=== PATIENT | female | born 1980 | race Caucasian/White ===

== ENCOUNTER 2021-09-09 10:37 | Day surgery (SDC) | payer SELFPAY, OTHER ==
[2021-09-09] VITALS (7 sets, daily range): BP systolic 101–115; BP diastolic 64–82; PULSE 56–66; RESP 16–18; TEMP 36.4–36.6; O2SAT 10–100; BMI 27.9
--- NOTE | 2021-09-09 08:43 | HP.PCM_ITS ---
History and Physical ntake Vital Signs ? 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 Christin Prabhakar MD) Anxiety Gastric reflux High cholesterol History of edema History of phlebitis Non-smoker Wears glasses Family History?(Updated 09/05/21 @ 14:59 by April Ramos) Grandfather Heart disease Social History?(Updated 09/05/21 @ 15:00 by April Ramos) Smoking Status:? Never smoker alcohol intake:? never substance use type:? does not use what type of physical activity do you participate in:? none seatbelt use:? always do you feel safe at home:? Yes additional social history:? [employer] also has [employer] business ? Pregancy History ? ? ? 5 ? Elective abortions ? Hx Para ? ? ? 4 ? Spontaneous abortions ? Hx # Term Pregnancies ? ? ? 4 ? Ectopic pregnancies ? Hx # Pregnancies ? Multiple births ? # of living children ? ? ? 4 Past Pregnancies Del. Date Name GA/Weeks Outcome Route Bth Weight Gen Labor Lgth Anesthesia Del Locatn Provider FOB Unknown 2003 Meghann 39 live - full term ? Female 4 none Range ? Ad Unknown 2006 Lamonte ? live - full term 42 Male ? n one [facility] Dr. Juan Duong Unknown 2009 Trini 42 live - full term NS VD ? Female ? none [facility] Dr. Juan Duong Unknown 2015 Christin 42 live - full term NS VD ? Female ? ? [facility] ? Ad Delivery Date:?? Last Updated by: April Ramos ? ? ? vericose veins ? ? ? Delivery Date:?? Last Updated by: April aRmos ? ? ? Dwarfism Delivery Date:?? Last Updated by: April Ramos ? ? ? Dwarfism HPI pro shop attendant pt, cervical polyp, ok per SM Details: TERRY ALVARENGA is a 41 year old who presents for consultation of vaginal bleeding and cervical mass.? she has been receiving care by [facility] and had a cervical mass seen and was referred here.? she was having intermittent bleeding sometimes small clots occasional cramping, and pelvic ultrasound showed a vasecular lesion coming off the cervix with viable IUP seen. she denies any fevers.? OB Visit CELESTINO Calculator ? Estimated Delivery DateB Method Current WG ? Current Estimate 03/11/22 Manual 13w 3d based on LMP Initial Weight:?Not Recorded Date -?-?-?-?-?-?-?-?-?-?-?-?- EGA Weight BP Urine Prot -?-?-?-?-?-?-?-?-?-?-?-?- Glucose FHR FuHt Pres Dilation -?-?-?-?-?-?-?-?-?-?-?-?- Effaced St Visit Note 09/05/21-?-?-?-?-?-?-?-?-?-?-?-?- 13w 2d 180 lb ? -?-?-?-?-?-?-?-?-?-?-?-?- ? 150 ? ? -?-?-?-?-?-?-?-?-?-?-?-?- ? ? - seen for vaginal bleeding and cervical mass Diagnostics Diagnostics Diagnostics: ?? ? No Data to Display Details: HIV: Urine Culture: Sequential Screen: NIPT Screen: ROS Const Reports system reviewed and no additional complaints, except as documented, Reports fatigue and Denies fever(s) Eyes Reports system reviewed and no additional complaints, except as documented ENT Reports system reviewed and no additional complaints, except as documented Card Denies chest pain and Denies dyspnea Resp Reports system reviewed and no additional complaints, except as documented, Denies cough and Denies dyspnea GI Denies abdominal pain and Reports nausea Reports system reviewed and no additional complaints, except as documented Musc Reports system reviewed and no additional complaints, except as documented Skin/Breast Reports system reviewed and no additional complaints, except as documented Neuro Yes system reviewed and no additional complaints, except as documented Psych Reports system reviewed and no additional complaints, except as documented Endo Reports system reviewed and no additional complaints, except as documented and Reports fatigue Exam Const General: healthy appearing, comfortable and no acute distress Orientation: alert [facility] Head: normal to inspection, normocephalic and atraumatic Ears: hearing grossly normal bilaterally and external ears normal Nose: external nose normal and nares normal Mouth: oral mucosae normal Teeth and gingiva: dentition normal Eyes General: appearance normal, both eyes and all related structures Neck Neck: normal visual inspection, no lymphadenopathy and supple Thyroid: thyroid normal Resp Effort & Inspection: normal respiratory effort GI Inspection: normal to inspection Palpation: soft and no hepatosplenomegaly General: bladder normal to palpation External Female Exam: normal external appearance and normal appearance of the urethra Urethra: normal appearance of the urethra Speculum Exam - Vagina: normal appearance of the vagina and normal vaginal discharge Speculum Exam - Cervix: abnormal appearance of the cervix and mass (fibroid in flamed 4-5cm with stalk ending at cervical base) Bimanual Exam- Vagina & Uterus: normal bimanual exam, bladder normal to palpation, non-tender and other Bimanual Exam- Adnexa, other: non-tender Skin General: no rashes or lesions noted Neuro Motor: muscle tone normal throughout and no movement abnormalities noted Extrem General: normal to inspection and full ROM Supplemental Info ACOG book given and patient encouraged to read about nutrition, exercise, weight gain, and food avoidance in . Coding Level of Care Code OB Routine Diagnoses ? Z34.90 Cervical polyp? N84.1 Uterine fibroid during , antepartum? O34.10; D25.9 Assessment and Plan Assessment and Plan (1) : ?Status:?Acute ?Comment: seeing pro shop attendant at [facility], we are seeing her through care of the fibroid then she will transfer back care (2) Cervical polyp: ?Status:?Acute (3) Uterine fibroid during , antepartum: ?Status:?Acute ?Comment: vaginal 4-5cm bleeding, recommend removal plan vaginal surgical removal at 14 weeks Plan discussed options including exp management versus removal, decision to proceed with removal thursday. After discussing the patient's diagnosis and treatment plan options, patient wi shes to proceed with surgical management.? I have discussed with the patient the risks, benefits, and alternatives of the procedure which include but are not limited to risks of anesthesia, bleeding, infection, possible miscarriage.? Patient agrees to procedure and wishes to proceed.? ACOG/uptodate references given for additional information regarding procedure.?
[2021-09-09] MEDS: Lactated Ringers 1,000 ML 15 ML IV (11:11)
[2021-09-09 11:44] LABS: Absolute Lymphocyte Count 1.52 X10^3/uL (0.83-4.51); Absolute Neutrophil Count 5.9 X10^3/uL (2.0-7.7); Basophil# 0.04 X10^3/uL; Basophil% 0.5 % (0-1); Eosinophil# 0.08 X10^3/uL; Hematocrit 39.8 % (37-47); Hemoglobin 12.1 g/dL (12.0-15.0); Lymphocyte # 1.52 X10^3/ul (0.83-4.51); Lymphocyte % 18.8 % (19-41); Mean Corp Hgb Conc 30.4 g/dL (32-36); Mean Corpuscular Volume 75.8 fL (81-99); Mean Platelet Vol. 8.2 fl (6.2-12.0); Monocyte# 0.51 X10^3/uL; Monocyte% 6.3 % (0-10); NRBC Flagged by Analyzer 0 % (0-5); Neutrophil # 5.88 X10^3/uL (2.7-7.7); Neutrophil % 72.8 % (47-70); Platelet Count 208 K/mm3 (150-450); RBC Distribution Width CV 18.2 % (11.6-14.6); RBC Distribution Width SD 48.1 fl (35.1-43.9); Red Blood Count 5.25 M/mm3 (4.2-5.4); White Blood Count 8.1 K/mm3 (4.4-11.0)
--- NOTE | 2021-09-09 12:00 | CER_PTH ---
PATIENT: TERRY ALVARENGA [place] [facility] [place][id number] AGE/SX: 41/F ROOM: RE09/09/[address]: Dr. Christin Prabhakar MD : 1980 BED: DIS: 09/09/2021 SPEC #: [id number] RECD: 09/09/21 13:45 STATUS: SHERWIN WALKER #: [id number] NGOZI: 09/09/21 12:[address]: Christin Prabhakar DEPT: SURGICAL PATHOLOGY RECD BY: Jessika Bailey ENTERED: 09/09/21 14:03 SP TYPE: CERV OTHR DR: Dr. Yovany Martinez MD Tissues: Fibrous tissue Procedures: Surgery Specimen Level IV HEADER OPERATION: Myomectomy, cervical PRE-OP DIAGNOSIS: Uterine fibroid during , antepartum TISSUE SUBMITTED: Cervical fibroid MICROSCOPIC DIAGNOSIS Cervical fibroid, biopsy: Consistent with benign endometrial polyp with gestational endometrium. See comment. DIAMOND:jae 09/11/2021 COMMENT The specimen also shows extensive Sandoval-Cande reaction and decidualization. Clinical correlation and appropriate follow-up are necessary. MICROSCOPIC DESCRIPTION Slides are reviewed. GROSS DESCRIPTION Received in fixative is one container labeled with the patient's name and designated cervical fibroid. The specimen consists of a polypoid piece of almaraz soft tissue measuring 4.5 x 3.5 x 2 cm and weighing 16.8 gm. The base of the polyp is inked black. Sections of the polyp reveal almaraz cut surfaces with focal cystic area. Car Worker Helper sections are submitted in four cassettes. Cassette 1 contains the base of the polyp. / DIAMOND:jae 09/09/2021 The specimen is submitted in six more cassettes, 5-10. / DIAMOND:jae 09/10/2021 TC:5 CPT: 24138
[2021-09-09] MEDS: Cefotetan 2 GM in 0.9% NS 100 ML IV (12:17)
--- NOTE | 2021-09-09 12:29 | OP.PCM_ITS ---
Problems Associated Problem List Diagnoses (1) : (2) Uterine fibroid during , antepartum: Report of Operation Date of Procedure: 09/09/21 Pre-Operative Diagnosis: Vaginal bleeding from cervical fibroid Post-Operative Diagnosis: same Surgery/Procedure Performed:: Cervical myomectomy Description of Surgical Findings:: Removal of cervical fibroid 4 to 5 cm stalk attached to base of cervix Surgeon: Christin Prabhakar director of community education: Jemima Gray Type of Anesthesia: MAC Special Medications: floseal surgicel Specimen's removed: cervical fibroid Drains: none Estimated Blood Loss (mL): 100 Fluids Replaced: crystalloid Description of Procedure: patient placed in dorsal lithotomy position. She was placed under MAC anest hesia which was found to be adequate and bladder drained of clear urine. SCDs were on preoperatively. Bedside ultrasound was used to confirm heart tones present and reassuring in the 140s with no gross abnormality seen within the uterus. Attention was then paid to the vaginal portion and the fibroid was grasped with an Allis clamp and the base of the fibroid stalk identified and noted to attach two thirds of the way up the endocervical canal with the cervix noted to be significantly dilated due to the fibroid being present. The cervix was very friable and bled easily. The base of the fibroid was clamped with a right angle clamp and the Bovie used to cut off the fibroid at its base. Using an 0 Vicryl suture the pedicle was suture-ligated and then to obtain hemostasis and additional [id number] suture was thrown over the area also providing some compression from the posterior lip of the cervix to the anterior lip where the fibroid stalk had been noted. A raw appearance was seen and therefore Floseal was injected into the endocervical canal where the fibroid pedicle had been ligated and fair hemostasis was noted. Surgicel placed over the area and the area was oversewn with a couple of additional [id number] 0 Vicryl sutures. This obtained excellent hemostasis and ultrasound was performed to confirm no buildup of blood in the endocervical canal seen or in the lower uterine segment. Uterus was posterior fundal and noted to be within normal limits. movement was seen while being confirmed with heart tones in the 140s at the end the procedure. Monsel's paste placed over the outside of the cervix and all instruments removed from the vagina. Patient was taken recovery in stable condition. After patient had been in recovery for 45 minutes an additional ultrasound at the bedside was performed and confirmed to see heart tones in the 140s and no gross abnormalities around the gestational sac or placenta. Patient had no vaginal bleeding to report at the time. Procedures Urinary/Genital 5XXXX Add on/ Proc: Other Procedure See Report (attention eder, myomectomy was not laparoscopic or open, it was vaginal, removal of cervical mass(fibroid 5 cm) unclear what CPT code to use.)
[2021-09-09] MEDS: FERRIC SUBSULFATE 8 GM SOLN (13:05)
--- NOTE | 2021-09-09 14:22 | DCINST_ITS ---
Discharge Instructions Procedure Other (cervical myomectomy) Diet Discharge Diet: No restrictions Activity Discharge Activity: Return to Normal Activity, May Shower and May Take a Tub Bath (after 1 week) May resume sexual activity in: 4 weeks Weight Bearing Status: Weight bearing as tolerated Lifting Restrictions: under fifteen pounds x 2 weeks Dressing / Incision Call your doctor if you observe: Fever of 101 or Higher, Using more than 1 pad per hour, Shortness of breath and Uncontrolled pain Follow Up Care Please Follow Up With: Christin Prabhakar MD When: Call [phone] to schedule appointment. call to be seen thursday with SM Test Results: Test results from this visit will be discussed in further detail at your follow- up appointment, if applicable. Discharge Plan Admission Attending Provider: Christin Prabhakar Primary Care Provider: Yovany Martinez Discharge Orders/Prescriptions Prescriptions: No Action multivitamin Tablet 1 tab PO DAILY fiber Tablet 1 tab PO DAILY Probiotic 3 billion cell Capsule 3,000 mmu cells PO DAILY Rx Instructions: administer with a meal Referrals / Follow Up: Yovany Martinez MD [Primary Care Provider] - Disposition Disposition (needs filled in before D/C Order can be placed): Home, Self Care
[2021-09-09] MEDS: Acetaminophen 500 MG Tablet 1000 MG PO (14:44)
== END 2021-09-09 14:49 | disposition home or self-care (01) ==
LOC: SDC 10:42 → AC 10:44
PROVIDERS: PCP Family Medicine; Visit Provider Obstetrics & Gynecology
PROC: 0UB98ZZ Excision of Uterus, Via Natural or Artificial Opening Endoscopic (ICD-10-PCS; CPT 58145; principal; 2021-09-09 11:40)
DX: O34.11 Maternal care for benign tumor of corpus uteri, first trimester (principal); D25.9 Leiomyoma of uterus, unspecified; Z3A.13 13 weeks gestation of pregnancy; O09.521 Supervision of elderly multigravida, first trimester
CPT/HCPCS: 58145; 00940; 85025; 86850; 86900; 86901; 88305; J7120; J2405

== ENCOUNTER → 2021-11-01 | Outpatient (CLI) | payer SELFPAY, OTHER ==
--- NOTE | 2021-11-01 08:08 | US_ITS ---
STUDY: SECOND AND THIRD TRIMESTER OBSTETRICAL ULTRASOUND REASON FOR EXAM: Female, 41 years old anatomy LMP: 06/04/2021. TECHNIQUE: Transabdominal and Transvaginal TECHNICAL QUALITY: Adequate. PRIOR ULTRASOUND: None. FINDINGS: There is a single intrauterine fetus. The fetus is in a variable presentation. There is demonstrated cardiac activity with a heart rate of 129 bpm. There is a normal amniotic fluid volume. The largest amniotic fluid pocket measures 5.8 cm x 3.3 cm. The amniotic fluid index (ELIOT) is within normal limits The placenta is posterior in location and is not low lying. There are Grade 0 placental changes. The cervix measures 3.3 cm in length. The bilateral adnexal regions are normal. BIOMETRY: BPD: 4.95 cm: 21 weeks, 0 days HC: 19.18 cm: 21 weeks, 3 days AC: 17.35 cm: 22 weeks, 2 days FL: 3.65 cm: 21 weeks, 4 days CI: 74% FL/BPD: 74% FL/HC: FL/AC: 21% HC/AC: 1.11 age by current US: 21 weeks, 3 days. CELESTINO by current US: 03/11/2022. Estimated weight: 458 grams, +/- 69 grams, 67 %. Age by LMP: 21 weeks, 3 days. CELESTINO by LMP: 03/11/2022. ANATOMY: Gender: Indeterminant Cranium: Normal lateral ventricles. Normal choroid plexus. Normal cerebellum. Normal cisterna magna. Normal face, nose and lips. Chest: Normal 4-chamber heart. Abdomen/Pelvis: Normal diaphragm. Normal stomach. Normal abdominal wall. Normal cord insertion. Normal 3 vessel cord. Normal kidneys. Normal bladder. Spine: Normal cervical spine. Normal thoracic spine. Normal lumbar spine. Normal sacrum. Extremities: Normal bilateral upper extremities. Normal bilateral lower extremities. IMPRESSION: Single live intrauterine gestation with a mean gestational age of 21 weeks and 3 days. Electronically Signed: Ray Sanchez MD at 10:38 EDT , STUDY: FIRST TRIMESTER OBSTETRICAL ULTRASOUND REASON FOR EXAM: Female, 41 years old . Cervical length measurement LMP: 06/04/2021 TECHNIQUE: Transvaginal TECHNICAL QUALITY: Adequate. PRIOR ULTRASOUND: None. FINDINGS: The cervical length measures 3.3 cm. US/OB Anatomy Scan IMPRESSION: Cervical length measures 3.3 cm. Electronically Signed: Ray Sanchez MD at 10:39 EDT ,
== END | disposition home or self-care (01) ==
LOC: OPUS 08:07
PROVIDERS: PCP Family Medicine; Referring Provider Obstetrics & Gynecology; Visit Provider Obstetrics & Gynecology
DX: Z34.90 Encounter for supervision of normal pregnancy, unspecified, unspecified trimester (principal)
CPT/HCPCS: 76805; 76817

== ENCOUNTER → 2021-12-23 | Outpatient (CLI) | payer OTHER, SELFPAY ==
[2021-12-23 09:45] LABS: Absolute Lymphocyte Count 1.22 X10^3/uL (0.83-4.51); Absolute Neutrophil Count 7.1 X10^3/uL (2.0-7.7); Basophil# 0.04 X10^3/uL; Basophil% 0.4 % (0-1); Eosinophil# 0.09 X10^3/uL; Hematocrit 38.1 % (37-47); Hemoglobin 12.6 g/dL (12.0-15.0); Lymphocyte # 1.22 X10^3/ul (0.83-4.51); Lymphocyte % 13.2 % (19-41); Mean Corp Hgb Conc 33.1 g/dL (32-36); Mean Corpuscular Hgb 29.9 pg (27.0-32.0); Mean Corpuscular Volume 90.5 fL (81-99); Mean Platelet Vol. 7.7 fl (6.2-12.0); Monocyte# 0.59 X10^3/uL; Monocyte% 6.4 % (0-10); NRBC Flagged by Analyzer 0 % (0-5); Neutrophil # 7.13 X10^3/uL (2.7-7.7); Neutrophil % 77.2 % (47-70); Platelet Count 118 K/mm3 (150-450); RBC Distribution Width CV 17.8 % (11.6-14.6); RBC Distribution Width SD 59.3 fl (35.1-43.9); Red Blood Count 4.21 M/mm3 (4.2-5.4); White Blood Count 9.2 K/mm3 (4.4-11.0)
[2021-12-23 10:06] LABS: Glucose Challenge Gest 1H 50g 96 mg/dL (70-140)
[2021-12-23 10:20] LABS: Rubella IgG Reactive (Nonreactive)
== END | disposition home or self-care (01) ==
PROVIDERS: Nurse Practitioner Women's Health; PCP Family Medicine; Referring Provider Obstetrics & Gynecology; Visit Provider Obstetrics & Gynecology
DX: O09.529 Supervision of elderly multigravida, unspecified trimester (principal); D69.6 Thrombocytopenia, unspecified; O99.119 Other diseases of the blood and blood-forming organs and certain disorders involving the immune mechanism complicating pregnancy, unspecified trimester
CPT/HCPCS: 36415; 82950; 85025; 86762; 86900; 86901; 87086; 87088

== ENCOUNTER 2022-01-20 08:40 | Outpatient (CLI) | payer OTHER, SELFPAY ==
[2022-01-20 08:57] LABS: Absolute Lymphocyte Count 1.27 X10^3/uL (0.83-4.51); Absolute Neutrophil Count 6.7 X10^3/uL (2.0-7.7); Basophil# 0.05 X10^3/uL; Basophil% 0.6 % (0-1); Eosinophil# 0.09 X10^3/uL; Hemoglobin 13.4 g/dL (12.0-15.0); Lymphocyte # 1.27 X10^3/ul (0.83-4.51); Lymphocyte % 14.2 % (19-41); Mean Corp Hgb Conc 33.5 g/dL (32-36); Mean Corpuscular Hgb 31.6 pg (27.0-32.0); Mean Corpuscular Volume 94.3 fL (81-99); Mean Platelet Vol. 7.8 fl (6.2-12.0); Monocyte# 0.66 X10^3/uL; Monocyte% 7.4 % (0-10); NRBC Flagged by Analyzer 0 % (0-5); Neutrophil % 74.7 % (47-70); Platelet Count 104 K/mm3 (150-450); RBC Distribution Width SD 55.5 fl (35.1-43.9); Red Blood Count 4.24 M/mm3 (4.2-5.4)
== END 2022-01-20 23:59 | disposition home or self-care (01) ==
LOC: PAVLAB 08:41
PROVIDERS: PCP Family Medicine; Referring Provider Nurse Practitioner Women's Health; Visit Provider Nurse Practitioner Women's Health
DX: D69.6 Thrombocytopenia, unspecified (principal)
CPT/HCPCS: 36415; 85025

== ENCOUNTER → 2022-02-19 | Outpatient (CLI) | payer OTHER, SELFPAY ==
[2022-02-19 08:46] LABS: Absolute Lymphocyte Count 1.27 X10^3/uL (0.83-4.51); Absolute Neutrophil Count 6.7 X10^3/uL (2.0-7.7); Basophil# 0.04 X10^3/uL; Basophil% 0.4 % (0-1); Eosinophil# 0.07 X10^3/uL; Eosinophils% 0.8 % (0-5); Hemoglobin 13.4 g/dL (12.0-15.0); Lymphocyte # 1.27 X10^3/ul (0.83-4.51); Lymphocyte % 14.3 % (19-41); Mean Corp Hgb Conc 32.7 g/dL (32-36); Mean Corpuscular Hgb 30.9 pg (27.0-32.0); Mean Corpuscular Volume 94.7 fL (81-99); Mean Platelet Vol. 8.1 fl (6.2-12.0); Monocyte# 0.61 X10^3/uL; Monocyte% 6.9 % (0-10); NRBC Flagged by Analyzer 0 % (0-5); Neutrophil # 6.68 X10^3/uL (2.7-7.7); Platelet Count 130 K/mm3 (150-450); RBC Distribution Width CV 14.8 % (11.6-14.6); RBC Distribution Width SD 50.8 fl (35.1-43.9); Red Blood Count 4.33 M/mm3 (4.2-5.4); White Blood Count 8.9 K/mm3 (4.4-11.0)
== END | disposition home or self-care (01) ==
PROVIDERS: Registered Nurse; PCP Family Medicine; Referring Provider Obstetrics & Gynecology; Visit Provider Obstetrics & Gynecology
DX: O09.529 Supervision of elderly multigravida, unspecified trimester (principal); D69.6 Thrombocytopenia, unspecified
CPT/HCPCS: 36415; 85025; 87081

== ENCOUNTER 2022-02-28 12:15 | Inpatient (IN) | payer SELFPAY, OTHER ==
[2022-02-28] VITALS (60 sets, daily range): BP systolic 111–153; BP diastolic 57–86; PULSE 68–113; TEMP 36.6–37.1; O2SAT 82–100; BMI 30.8
[2022-02-28] MEDS: Lactated Ringers 1,000 ML 50 ML IV (10:30)
[2022-02-28] MEDS: LACTATED RINGERS 500 ML 999 ML IV ×2 (10:49→14:45)
[2022-02-28 11:02] LABS: Absolute Lymphocyte Count 1.55 X10^3/uL (0.83-4.51); Absolute Neutrophil Count 5.8 X10^3/uL (2.0-7.7); Basophil# 0.05 X10^3/uL; Basophil% 0.6 % (0-1); Eosinophil# 0.06 X10^3/uL; Eosinophils% 0.7 % (0-5); Hemoglobin 13.9 g/dL (12.0-15.0); Lymphocyte # 1.55 X10^3/ul (0.83-4.51); Lymphocyte % 18.3 % (19-41); Mean Corp Hgb Conc 33.9 g/dL (32-36); Mean Corpuscular Hgb 31.7 pg (27.0-32.0); Mean Corpuscular Volume 93.4 fL (81-99); Mean Platelet Vol. 8.4 fl (6.2-12.0); Monocyte# 0.86 X10^3/uL; Monocyte% 10.2 % (0-10); NRBC Flagged by Analyzer 0 % (0-5); Neutrophil # 5.79 X10^3/uL (2.7-7.7); Neutrophil % 68.3 % (47-70); Platelet Count 123 K/mm3 (150-450); RBC Distribution Width CV 14.7 % (11.6-14.6); RBC Distribution Width SD 50.3 fl (35.1-43.9); Red Blood Count 4.39 M/mm3 (4.2-5.4); White Blood Count 8.5 K/mm3 (4.4-11.0)
[2022-02-28 11:44] LABS: Syphilis Antibodies Non-reactive
[2022-02-28 11:59] LABS: HIV - WCH Non-Reactive (Nonreactive); Hepatitis B Surface Antigen Non-Reactive (Nonreactive); Hepatitis C Antibody Non-Reactive (Nonreactive)
[2022-02-28 12:55] LABS: Bacteria 0 SEEN /hpf (None Seen); Mucous, Urine 0 SEEN /hpf (<or=2+); Red Blood Cells-Urine 0 SEEN /hpf (0-5); Squamous Epithelial Cells - UA 0 SEEN /hpf (5-10); White Blood Cells 0 SEEN /hpf (0-5)
[2022-02-28 12:58] LABS: Color, Urine Yellow (Yellow); Glucose, Dipstick Normal (Normal); Ketone-Dipstick 15 mg/dl (Negative); Leukocyte Esterase-Dipstick Negative /ul (Negative); Nitrite-Dipstick Negative (Negative); Occult Blood-Urine Negative /ul (Negative); Protein-Dipstick Negative (Negative); Specific Gravity, Urine 1.005 (1.002-1.030); Urine Bilirubin Dipstick Negative (Negative); Urine Clarity Sl. Cloudy (Clear); Urine Urobilinogen Normal (Normal)
[2022-02-28 13:07] LABS: Amphetamine Urine VISTA NEGATIVE (<1000 ng/mL); Barbiturate Urine VISTA NEGATIVE (< 200 ng/mL); Benzodiazepine Urine VISTA NEGATIVE (< 200 ng/mL); Cocaine Urine VISTA NEGATIVE (< 300 ng/mL); Ecstacy Urine VISTA NEGATIVE (< 500 ng/mL); Methadone Urine VISTA NEGATIVE (< 300 ng/mL); PCP Urine VISTA NEGATIVE (< 25 ng/mL); THC Urine VISTA NEGATIVE (< 50 ng/mL); Vista UDS pH Range 7
[2022-02-28] MEDS: Oxytocin 15 Units/NS 250ml 15 UNITS/250 ML IV.SOLN 2 UNITS IV (14:45)
[2022-02-28 15:17] LABS: Chlamydia Trachomatis by PCR Negative (Negative); Neisserai gonorrhoeae by PCR Negative (Negative); Probe Check PASS; Sample Adequacy Control PASS; Specimen Processing Control PASS
[2022-02-28] MEDS: fentaNYL-bupivacaine (epidural) 100 ML BAG EPIDURAL (15:51)
--- NOTE | 2022-02-28 17:09 | HP.PCM.OB_ITS ---
HPI - General General Date of Admission: 02/28/22 HPI Narrative TERRY ALVARENGA, is a 41 y/o @ 38 weeks 3 days by LMP who presents to L&D for augmentation of labor. She was found to have a prolonged spontaneous decel in the office and 2 more late decels on L&D. upon exam she was found to be 5 cm dilated and in early labor. the decision was made to augment labor. She is requesting epidural now. Maternal Data Information CELESTINO Calculator Estimated Delivery Date Method Current WG Current Estimate 03/11/22 Manual 38w 3d based on LM P PFSH PFSH Medical History Anxiety Gastric reflux High cholesterol History of edema History of phlebitis Non-smoker Wears glasses Home Medications fiber 1 tab PO DAILY supplement 09/06/21 [History Last Taken 02/27/22 22:00 1 tab] lactobacillus combination no.4 3 billion cell capsule (Probiotic) 3,000 mmu cells PO DAILY supplement 09/06/21 [History Last Taken 02/26/22 22:00 3000 mmu] multivitamin 1 tab PO DAILY supplement 09/06/21 [History Last Taken 02/28/22 08:00 1 tab] Allergy/AdvReac Type Severity Reaction Status Date / Time No Known Allergies Allergy Verified 02/28/22 10:22 Family History Grandfather Heart disease Social History Smoking Status: Never smoker alcohol intake: never substance use type: does not use what type of physical activity do you participate in: none seatbelt use: always do you feel safe at home: Yes additional social history: [employer] also has publishing business History 5 Elective abortions Hx Para 4 Spontaneous abortions Hx # Term Pregnancies 4 Ectopic pregnancies Hx # Pregnancies Multiple births # of living children 4 Past Pregnancies Del. Date Name GA/Weeks Outcome Route Bth Weight Gen Labor Lgth Anesthesia Del Locatn Provider FOB Unknown 2003 Meghann 39 live - full term Female 4 none Doug Duong Unknown 2005 Lamonte live - full term 42 Male none [facility] Dr. Juan Duong Unknown 2009 Trini 42 live - full term Female none [facility] Dr. Juan Duong Unknown 2015 Christin 42 live - full term Female [facility] Ad Delivery Date: Last Updated by: April Ramos vericose veins Delivery Date: Last Updated by: April Staples Delivery Date: Last Updated by: April Staples Visit Details Expected Delivery Route/Plan Labor Preferences- CB/BF classes: no labor support person: Ad labor intervention preferences: [] pain management options preferred: limited; epidural ok cut cord/dad catch: yes : yes PP control planned: BS discussed possible routes of delivery and associated risks: [] special requests: [] Plans Covid status: declined Flu vaccine: declined Tdap vaccine: declined Rhogam: given LARC form signed: yes Problem list reviewed and updated with the most current plan of care details and appropriate orders placed. Relevant counseling for the gestational age provided. Continue routine care and follow up unless otherwise noted in visit notes/problem list details OB Flowsheet Initial Weight: Not Recorded Date -?-?-?-?-?-?-?-?-?-?-?-?- EGA Weight BP Urine Prot -?-?-?-?-?-?-?-?-?-?-?-?- Glucose FHR FuHt Pres Dilation -?-?-?-?-?-?-?-?-?-?-?-?- Effaced St Visit Note 09/05/21 -?-?-?-?-?-?-?-?-?-?-?-?- 13w 2d 180 lb -?-?-?-?-?-?-?-?-?-?-?-?- 150 -?-?-?-?-?-?-?-?-?-?-?-?- Sm- seen for vag inal bleeding and cervical mass 09/13/21 -?-?-?-?-?-?-?-?-?-?-?-?- 14w 3d 180 lb 6 oz 116/78 Nega tive -?-?-?-?-?-?-?-?-?-?-?-?- Negative 135 -?-?-?-?-?-?-?-?-?-?-?-?- SM- normal ultra sound no gross abnormalities to baby or plcaenta or GS doing well, has superficial thrombophlebitis recommend warm compresses reviewed care 10/04/21 -?-?-?-?-?-?-?-?-?-?-?-?- 17w 3d 185 lb 102/80 Negative -?-?-?-?-?-?-?-?-?-?-?-?- Negative 150 -?-?-?-?-?-?-?-?-?-?-?-?- SM- no vb lof so me fm. discussed anatomy US. recommend vaginal exam next visit 11/01/21 -?-?-?-?-?-?-?-?-?-?-?-?- 21w 3d 189 lb 110/80 -?-?-?-?-?-?-?-?-?-?-?-?- 135 0 -?-?-?-?-?-?-?-?-?-?-?-?- SM- no vb lof go od fm no regular ctx imaging appears normal but await formal read. 12/13/21 -?-?-?-?-?-?-?-?-?-?-?-?- 27w 3d 197 lb 107/67 Negative -?-?-?-?-?-?-?-?-?-?-?-?- Negative 135 28 -?-?-?-?-?-?-?-?-?-?-?-?- SM- no vb lof go od fm no regular ctx 12/23/21 -?-?-?-?-?-?-?-?-?-?-?-?- 28w 6d 198 lb 8 oz 98/72 Nega tive -?-?-?-?-?-?-?-?-?-?-?-?- Negative 149 29 -?-?-?-?-?-?-?-?-?-?-?-?- MH-vaginal irrit ation, small pink tinged on toilet tissue. Good FM. Irreg BH. 01/20/22 -?-?-?-?-?-?-?-?-?-?-?-?- 32w 6d 200 lb 4 oz 108/72 Nega tive -?-?-?-?-?-?-?-?-?-?-?-?- Negative 145 32 -?-?-?-?-?-?-?-?-?-?-?-?- MH-No VB, lof. G ood FM. Discussed further drop of platelets. Enc to stop supplements sienna V Vein. Will recheck CBC at 36wk. NSTs weekly at 36 wk. 02/03/22 -?-?-?-?-?-?-?-?-?-?-?-?- 34w 6d 202 lb 8 oz 106/70 Nega tive -?-?-?-?-?-?-?-?-?-?-?-?- Negative 130 35 Cephalic -?-?-?-?-?-?-?-?-?-?-?-?- LC- no vb/lof/ct x. good fm. d/c'd omega 3 supplement. cbc ordered to follow platelets. 02/19/22 -?-?-?-?-?-?-?-?-?-?-?-?- 37w 1d 202 lb 115/77 Negative -?-?-?-?-?-?-?-?-?-?-?-?- Negative 135 37 Cephalic -?-?-?-?-?-?-?-?-?-?-?-?- LC- platelets in creased to 130!!doing well. reactive NST. GBS obtained today. desires to obtain a spontaneous labor and and does not want an IOL at this time. reviewed risk and benefits. discussed obtaining ELIOT at 39 weeks. will discuss again at next visit. ROS Constitutional Constitutional: Denies change in weight, fatigue, fever(s), headache(s), poor appetite or weakness Eyes Eyes: Denies blurry vision, change in vision, seeing flashes or spots in vision ENT HEENT: Denies dizziness, headache(s), loss taste/smell or sore throat Cardiovascular Cardiovascular: Denies chest pain, dizziness, dyspnea, irregular heart rhythm, leg edema, palpitations, rapid heart rate or vomiting Respiratory/Chest Respiratory/Chest: Denies chest tightness, cough, dyspnea or breast pain Gastrointestinal Gastrointestinal: Denies abdominal pain, anorexia, constipation, cramping, diarrhea, hemorrhoids, vomiting or weight changes Genitourinary Genitourinary: Denies dysuria, flank pain, genital lesions, genital pain, urinary frequency or urinary urgency Musculoskeletal Musculoskeletal: Denies back pain, difficulty walking, joint pain, limited range of motion, muscle cramps or numbness Integumentary Integumentary: Denies lesions or unusual bruising Neurologic Neurologic: Denies abnormal movements, abnormal speech, dizziness, numbness, seizure-like activity or syncope Psychiatric Psychiatric: Denies anxiety, behavioral changes, change in appetite, change in libido, cognitive impairment, confusion, depression, difficulty concentrating, hallucinations or suicidal thoughts Endocrine Endocrinology: Denies excessive sweating, polydipsia or polyuria Hematologic/Lymphatic Hematologic/Lymphatic: Denies easy bleeding, easy bruising or lymphadenopathy Allergic/Immunologic Allergic/Immunologic: Denies itchy eyes, lip swelling, seasonal rhinorrhea, rhinitis, throat swelling, tongue swelling, eczemia, wheezing or asthma Vital Signs Vital Signs Vital Signs: 02/28/22 10:14 02/28/22 10:14 02/28/22 10:17 Temperature Temperature Source Pulse Rate 82 103 H Blood Pressure 139/86 H BP Systolic 139 BP Diastolic 86 Pulse Ox 02/28/22 10:17 02/28/22 10:22 02/28/22 10:22 Temperature Temperature Source Pulse Rate 88 Blood Pressure BP Systolic BP Diastolic Pulse Ox 100 100 02/28/22 10:26 02/28/22 10:27 02/28/22 10:27 Temperature Temperature Source Temporal Pulse Rate 78 Blood Pressure BP Systolic BP Diastolic Pulse Ox 99 02/28/22 10:26 02/28/22 10:32 02/28/22 10:32 Temperature 98.3 F Temperature Source Pulse Rate 76 Blood Pressure BP Systolic BP Diastolic Pulse Ox 99 02/28/22 10:37 02/28/22 10:37 02/28/22 10:42 Temperature Temperature Source Pulse Rate 76 72 Blood Pressure BP Systolic BP Diastolic Pulse Ox 99 02/28/22 10:42 02/28/22 10:42 02/28/22 10:42 Temperature Temperature Source Pulse Rate 74 Blood Pressure 118/70 BP Systolic 118 BP Diastolic 70 Pulse Ox 98 02/28/22 10:47 02/28/22 10:47 02/28/22 10:52 Temperature Temperature Source Pulse Rate 71 73 Blood Pressure BP Systolic BP Diastolic Pulse Ox 99 02/28/22 10:52 02/28/22 10:57 02/28/22 10:57 Temperature Temperature Source Pulse Rate 70 Blood Pressure BP Systolic BP Diastolic Pulse Ox 99 99 02/28/22 11:02 02/28/22 11:02 02/28/22 11:07 Temperature Temperature Source Pulse Rate 70 73 Blood Pressure BP Systolic BP Diastolic Pulse Ox 99 02/28/22 11:07 02/28/22 11:12 02/28/22 11:12 Temperature Temperature Source Pulse Rate 69 Blood Pressure BP Systolic BP Diastolic Pulse Ox 98 99 02/28/22 11:17 02/28/22 11:17 02/28/22 11:22 Temperature Temperature Source Pulse Rate 72 74 Blood Pressure BP Systolic BP Diastolic Pulse Ox 100 02/28/22 11:22 02/28/22 11:27 02/28/22 11:27 Temperature Temperature Source Pulse Rate 80 Blood Pressure BP Systolic BP Diastolic Pulse Ox 98 99 02/28/22 12:39 02/28/22 12:39 02/28/22 14:01 Temperature Temperature Source Pulse Rate 85 Blood Pressure 144/76 H 138/76 H BP Systolic 144 138 BP Diastolic 76 76 Pulse Ox 02/28/22 14:01 02/28/22 14:01 02/28/22 14:02 Temperature Temperature Source Temporal Pulse Rate 83 76 Blood Pressure BP Systolic BP Diastolic Pulse Ox 02/28/22 14:02 02/28/22 14:01 02/28/22 15:34 Temperature 98.5 F Temperature Source Pulse Rate 82 Blood Pressure BP Systolic BP Diastolic Pulse Ox 99 02/28/22 15:34 02/28/22 15:39 02/28/22 15:39 Temperature Temperature Source Pulse Rate 95 Blood Pressure 142/84 H BP Systolic 142 BP Diastolic 84 Pulse Ox 95 02/28/22 15:39 02/28/22 15:44 02/28/22 15:44 Temperature Temperature Source Pulse Rate 96 Blood Pressure 153/76 H BP Systolic 153 BP Diastolic 76 Pulse Ox 100 02/28/22 15:44 02/28/22 15:44 02/28/22 15:49 Temperature Temperature Source Pulse Rate 93 Blood Pressure 138/68 H BP Systolic 138 BP Diastolic 68 Pulse Ox 100 02/28/22 15:49 02/28/22 15:49 02/28/22 15:54 Temperature Temperature Source Pulse Rate 97 94 Blood Pressure BP Systolic BP Diastolic Pulse Ox 100 02/28/22 15:54 02/28/22 15:55 02/28/22 15:55 Temperature Temperature Source Pulse Rate 96 Blood Pressure 131/67 H BP Systolic 131 BP Diastolic 67 Pulse Ox 100 02/28/22 15:59 02/28/22 15:59 02/28/22 15:59 Temperature Temperature Source Pulse Rate 90 Blood Pressure 133/67 H BP Systolic 133 BP Diastolic 67 Pulse Ox 99 02/28/22 16:04 02/28/22 16:04 02/28/22 16:04 Temperature Temperature Source Pulse Rate 113 H Blood Pressure 123/72 H BP Systolic 123 BP Diastolic 72 Pulse Ox 99 02/28/22 16:09 02/28/22 16:09 02/28/22 16:09 Temperature Temperature Source Pulse Rate 91 Blood Pressure 126/69 H BP Systolic 126 BP Diastolic 69 Pulse Ox 99 02/28/22 16:14 02/28/22 16:14 02/28/22 16:14 Temperature Temperature Source Pulse Rate 81 Blood Pressure 122/66 H BP Systolic 122 BP Diastolic 66 Pulse Ox 99 02/28/22 16:19 02/28/22 16:19 02/28/22 16:19 Temperature Temperature Source Pulse Rate 77 Blood Pressure 122/63 H BP Systolic 122 BP Diastolic 63 Pulse Ox 100 02/28/22 16:24 02/28/22 16:24 02/28/22 16:24 Temperature Temperature Source Pulse Rate 81 Blood Pressure 124/66 H BP Systolic 124 BP Diastolic 66 Pulse Ox 100 02/28/22 16:29 02/28/22 16:29 02/28/22 16:29 Temperature Temperature Source Pulse Rate 77 89 Blood Pressure 117/64 BP Systolic 117 BP Diastolic 64 Pulse Ox 02/28/22 16:29 02/28/22 16:34 02/28/22 16:34 Temperature Temperature Source Pulse Rate 88 Blood Pressure BP Systolic BP Diastolic Pulse Ox 100 99 02/28/22 16:39 02/28/22 16:39 02/28/22 16:42 Temperature Temperature Source Pulse Rate 73 Blood Pressure 142/79 H BP Systolic 142 BP Diastolic 79 Pulse Ox 99 02/28/22 16:42 02/28/22 16:44 02/28/22 16:44 Temperature Temperature Source Pulse Rate 78 81 Blood Pressure BP Systolic BP Diastolic Pulse Ox 100 Weight Weight: 197 lb Body Mass Index (BMI) 30.8 Physical Exam Const alert, oriented x3, no apparent distress and healthy appearing General Appearance: cooperative; Negative for anxious HEENT normocephalic Face and Sinus: normal facial exam Eyes EOMs intact bilaterally and no scleral icterus General Eye: normal appearance of both eyes Neck full ROM and supple Lymph Lymphatic: no lymphadenopathy noted Chest Chest: abnormal inspection of the chest Resp normal respiratory effort Effort and Inspection: able to speak in complete sentences Cardio regular rate GI soft to palpation and non-tender Inspection: gravid Palpation: soft; Negative for tender external exam normal Amniotic Fluid: ROM+plus Back/Spine no CVA tenderness Extremity normal to inspection, full ROM and no clubbing, cyanosis or edema General Extremity: Negative for calf tenderness or edema Skin Lesions: no lesions Rashes: no rashes Psych mental status grossly normal Labs Labs Labs: Blood Type O NEGATIVE Antibody Screen NEGATIVE Hct 41.0 % (37-47) Hgb 13.9 g/dL (12.0-15.0) Obstetrics US Syphilis Total Ab Non-reactive Rubella IgG Antibody Reactive (Nonreactive) Hep Bs Antigen Non-Reactive (Nonreactive) HIV 1&2 Antibody Non-Reactive (Nonreactive) Glucose 1 Hr 50 gm 96 mg/dL (70-140) Assessment & Plan (1) Thrombocytopenia affecting : COMMENT: rpt next visit. Stop herbal v Vein for hx superficial phlebitis; 118 drop to 104; rpt at 36 wk. Would like epidural at 37 weeks: 130 (2) Supervision of elderly multigravida: COMMENT: SP labs:[id number] CELESTINO 03/11/22 PC Lamonte Zavaleta Caroline, Sharon Ad NST wkly at 36 week ELIOT at 39 weeks (3) Rh negative state in antepartum period: COMMENT: rhogam at 28 weeks given 12/23 (4) Superficial thrombophlebitis: COMMENT: warm compresses reviewed precautions (5) Endometrial polyp: COMMENT: removed at 14 weeks (6) : QUALIFIERS: Weeks of gestation: 38 weeks Qualified Code(s): Z3A.38 - 38 weeks gestation of COMMENT: GBS Negative, anatomy nl, was originally seeing emergency response coordinator at [facility] and then transferred care her. Plans some visits in [facility] PLAN: Plan Patient presents IOL, plan management for with pitocin/AROM. Pain management: plans epidural. GBS negative. Management of any complications: ama, h/o large cervical polyp removal during could explain advanced cervical dilation with minimal contractions. I have reviewed the [facility] and made any clinically relevant updates.
--- NOTE | 2022-02-28 17:19 | PN_ITS ---
Progress Note pt is comfortable with epidural current tracing: FHT: 150's Moderate variability reactive no decelerations category I tracing [place]: irregular Contractions cx: 6 cm still posterior. membranes ruptured and clear fluid returned (moderate amount) reviewed tracing abnormalities since last note: no decels A/P: continue with pitocin and expectant labor management.
--- NOTE | 2022-02-28 20:36 | EX.PCM.OBRPT ---
Assessment & Plan (1) Thrombocytopenia affecting : COMMENT: rpt next visit. Stop herbal v Vein for hx superficial phlebitis; 118 drop to 104; rpt at 36 wk. Would like epidural at 37 weeks: 130 (2) Supervision of elderly multigravida: COMMENT: SP labs:[id number] CELESTINO 03/11/22 PC Lamonte Zavaleta Caroline, Sharon Ad NST wkly at 36 week ELIOT at 39 weeks (3) Rh negative state in antepartum period: COMMENT: rhogam at 28 weeks given 12/23 (4) Superficial thrombophlebitis: COMMENT: warm compresses reviewed precautions (5) Endometrial polyp: COMMENT: removed at 14 weeks (6) : QUALIFIERS: Weeks of gestation: 38 weeks Qualified Code(s): Z3A.38 - 38 weeks gestation of COMMENT: GBS Negative, anatomy nl, was originally seeing powdered metal supervisor at [facility] and then transferred care her. Plans some visits in [facility] Maternal Data Information CELESTINO Calculator Estimated Delivery Date Method Current WG Current Estimate 03/11/22 Manual 38w 3d based on LMP Final CELESTINO Source: LMP Gestational age: 38 weeks 3 days Vaginal Delivery Maternal Presentation Maternal Presentation: Medically Indicated Induction Maternal Presentation: patient presented for induction due to decelerations noted in the office and in triage. Type of Induction: Pitocin and Amniotomy Operative Information Date of Procedure: 02/28/22 Pre-Operative Diagnosis: @ 38 weeks 3 days, decelerations, advanced maternal age Post-Operative Diagnosis: @ 38 weeks 3 days, decelerations, advanced maternal age Type of Anesthesia: Epidural Drain: Restrepo to straight drain Estimated Blood Loss: 50cc Findings Description of Procedure: Patient began pushing and delivered the head in the MODESTO presentation. The head was delivered atraumatically. The anterior and posterior shoulders delivered without complication followed by the rest of the infant and the was placed on the maternal abdomen. Delayed cord clamping was employed for approximately 60 seconds. Cord was clamped and cut and gentle traction was applied to the cord and the placenta delivered spontaneously immediately following it was noted to be intact with three-vessel cord. The perineum and vagina were inspected and noted to have no laceration. EBL was 50cc. Patient and infant tolerated delivery well. Presentation: Vertex Amniotic Membrane Rupture Type: Spontaneous Amniotic Fluid Description: Clear Placental Delivery Description: Spontaneous Placenta Disposition: [facility] Cord Vessel Description: 3 Vessels Cord Entanglement: None A Gender: Female (1 minute): 8 (5 minute): 9 Delayed Cord Clamping: Yes Post Vaginal Delivery Medications Given After Delivery: IV Pitocin Episiotomy Description: None Laceration: None Complication Complications: None Procedures Urinary/Genital [id number]: [id number] Vaginal Delivery [facility]
[2022-03-01 00:46] VITALS: BP 101/53; PULSE 72; RESP 18; TEMP 36.1; O2SAT 96
--- NOTE | 2022-03-01 01:38 | NURSING ---
RN notes pt passed an egg size clot. Fundus firm, 1 below umbilicus, and bleeding moderate. No trickling of blood noted. Pt says she feels tired but feels its from lack of sleep. No other signs or symptoms noted. Will continue to monitor.
[2022-03-01 04:26] VITALS: BP 113/60; PULSE 71; RESP 18; O2SAT 96
[2022-03-01] MEDS: Ibuprofen 600 MG Tablet PO (07:48)
[2022-03-01 08:00] VITALS: BP 108/63; PULSE 68; RESP 16; TEMP 36.6
--- NOTE | 2022-03-01 08:59 | PN.OBGYN_ITS ---
Subjective Subjective Patient doing well without complaints. Tolerating PO. Ambulating and voiding without difficulty. Feeding well. Denies chest pain, shortness of breath, calf pain/swelling, fevers, chills, lightheadedness. Objective Data Objective Data Vital Signs: Vital Signs Temp Pulse Resp BP Pulse Ox O2 Del Method 97 F L 71 18 113/60 96 Room Air 03/01/22 00:46 03/01/22 04:26 03/01/22 04:26 03/01/22 04:26 03/01/22 04:26 03/01/22 04:26 Oxygen Delivery Method Room Air Weight: 197 lb Body Mass Index (BMI) 30.8 Intake & Output: Intake and Output for Last 24 Hours 02/27/22 02/28/22 03/01/22 23:59 23:59 23:59 Intake Total 2092.50 / 2092.50 Output Total 1700 / 1700 1000 / 1000 Balance 392.50 / 392.50 -1000 / -1000 Lab / Micro Data Result Diagrams: 02/28/22 10:30 Labs: Laboratory Results - last 24 hr 02/28/22 10:30: WBC 8.5, RBC 4.39, Hgb 13.9, Hct 41.0, MCV 93.4, MCH 31.7, MCHC 33.9, RDW Std Deviation 50.3 H, RDW Coeff of Sally 14.7 H, Plt Count 123 L, MPV 8.4, Immature Gran % (Auto) 1.900 H, Neut % (Auto) 68.3, Lymph % (Auto) 18.3 L, [place]orne % (Auto) 10.2 H, Eos % (Auto) 0.7, Baso % (Auto) 0.6, Absolute Neuts (auto) 5.8, Absolute Lymphs (auto) 1.55, Nucleated RBC % 0 02/28/22 10:30: Syphilis Total Ab Non-reactive 02/28/22 10:30: Blood Type O NEGATIVE, Antibody Screen NEGATIVE 02/28/22 10:30: Hep Bs Antigen Non-Reactive, Hepatitis C Antibody Non-Reactive, HIV 1&2 Antibody Non-Reactive 02/28/22 12:40: Urine Color Yellow, Urine Clarity Sl. Cloudy, Urine pH 7.0, Ur Specific [place] 1.005, Urine Protein Negative, Urine Glucose (UA) Normal, Urine Ketones 15 H, Urine Occult Blood Negative, Urine Nitrite Negative, Urine Bilirubin Negative, Urine Urobilinogen Normal, Ur Leukocyte Esterase Negative, Urine RBC 0 SEEN, Urine WBC 0 SEEN, Ur Squamous Epith Cells 0 SEEN, Urine Bacteria 0 SEEN, Urine Mucus 0 SEEN 02/28/22 12:40: Chlam trachomat DNA PCR Negative, N.gonorrhoeae DNA (PCR) Negative 02/28/22 12:40: Urine Opiates Screen NEGATIVE, Urine Methadone Screen NEGATIVE, Ur Barbiturates Screen NEGATIVE, Ur Phencyclidine Scrn NEGATIVE, Ur Amphetamines Screen NEGATIVE, MDMA (Ecstasy) Screen NEGATIVE, U Benzodiazepines Scrn NEGATIVE, Urine Cocaine Screen NEGATIVE, U Cannabinoids Screen NEGATIVE, Ur Drug Screen Comment ROS Constitutional Constitutional: Denies chills, fatigue, fever(s), poor appetite or weakness Eyes Eyes: Denies blurry vision, change in vision, seeing flashes or spots in vision ENT HEENT: Denies dizziness, headache(s), loss taste/smell or sore throat Cardiovascular Cardiovascular: Denies chest pain, dizziness, dyspnea, irregular heart rhythm, palpitations or rapid heart rate Respiratory/Chest Respiratory/Chest: Denies chest tightness, cough, dyspnea or breast pain Gastrointestinal Gastrointestinal: Denies abdominal pain, constipation or vomiting Genitourinary Genitourinary: Denies dysuria or flank pain Musculoskeletal Musculoskeletal: Denies difficulty walking, joint pain, limited range of motion or numbness Neurologic Neurologic: Denies abnormal movements, abnormal speech, dizziness, numbness, seizure-like activity or syncope Psychiatric Psychiatric: Denies anxiety, behavioral changes, change in appetite, confusion, depression or suicidal thoughts Physical Exam Const alert, oriented x3 and no apparent distress General Appearance: cooperative and comfortable Resp normal respiratory effort Cardio regular rate GI normal to inspection, nondistended, normoactive bowel sounds GI Narrative: uterus is firm below umbilicus Palpation: soft Back/Spine no CVA tenderness and thoraco-lumbar ROM normal Extremity normal to inspection, no clubbing, cyanosis or edema, no calf tenderness and no pedal edema Psych mental status grossly normal, thought process normal, cooperative, affect normal, speech normal, activity/motor behavior normal, denies homicidal ideation and denies suicidal ideation Assessment & Plan (1) Thrombocytopenia affecting : COMMENT: rpt next visit. Stop herbal v Vein for hx superficial phlebitis; 118 drop to 104; rpt at 36 wk. Would like epidural at 37 weeks: 130 (2) Supervision of elderly multigravida: COMMENT: SP labs:[id number] CELESTINO 03/11/22 PC Lamonte Zavaleta Caroline, Sharon Ad NST wkly at 36 week ELIOT at 39 weeks (3) Rh negative state in antepartum period: COMMENT: rhogam at 28 weeks given 12/23 (4) Superficial thrombophlebitis: COMMENT: warm compresses reviewed precautions (5) Endometrial polyp: COMMENT: removed at 14 weeks (6) : QUALIFIERS: Weeks of gestation: 38 weeks Qualified Code(s): Z3A.38 - 38 weeks gestation of COMMENT: GBS Negative, anatomy nl, was originally seeing room clerk at [facility] and then transferred care her. Plans some visits in [facility] PLAN: Plan .s/p PPD # 1 1. routine post delivery care 2. breast feeding- support given 3. rh positive 4. rubella immune 5. plan for dc tomorrow or thursday.
[2022-03-01 12:00] VITALS: BP 102/59; PULSE 66; RESP 16; TEMP 36.7
[2022-03-01 16:00] VITALS: BP 115/62; PULSE 61; RESP 18; TEMP 36.9
[2022-03-01 22:00] VITALS: BP 123/70; PULSE 66; RESP 16; TEMP 36.2
[2022-03-01] MEDS: Acetaminophen 500 MG Tablet 1000 MG PO (22:07)
[2022-03-02 02:00] VITALS: BP 107/63; PULSE 80; RESP 16; TEMP 36.7
[2022-03-02 06:00] VITALS: BP 104/67; PULSE 80; RESP 16; TEMP 35.7
[2022-03-02 07:48] VITALS: BP 127/76; PULSE 68; RESP 16; TEMP 36.5; O2SAT 96
--- NOTE | 2022-03-02 11:08 | VDLE_ITS ---
Reason For Study: Swelling Procedure LEFT This is a venous duplex using B-mode, color GSV is normal. flow and spectral Doppler. CFV is compressible, spontaneous, phasic, Exam performed portable in patient room. competent, and demonstrates normal A preliminary report was called and/or faxed augmentation. to RN. FV is compressible, spontaneous, phasic, competent and demonstrates normal augmentation. POP V is compressible, spontaneous, phasic, competent and demonstrates normal augmentation. T/P Trunk is compressible. PTV is compressible. LT PerV is compressible. VL/Venous Duplex US, Unilateral Interpretation Summary Deep veins of the left lower extremity are patent and compressible segmentally. There is no evidence of left lower extremity deep vein thrombosis. The left great saphenous vein octavia ears patent and compressible segmentally. Ordering Physician: Michelle Velazquez Referring Physician: Yovany Martinez Performed By: Kayleigh Srinivasan RVT
--- NOTE | 2022-03-02 11:14 | PCM.DC.SUM ---
Providers Date of Admission: 02/28/22 Primary Care Physician: Dr. Yovany Martinez MD Diagnosis Discharge Diagnosis (1) Thrombocytopenia affecting : Status: Acute Code(s): O99.119 - Other diseases of the blood and blood-forming organs and certain disorders involving the immune mechanism complicating , unspecified trimester; D69.6 - Thrombocytopenia, unspecified (2) Supervision of elderly multigravida: Status: Acute Code(s): O09.529 - Supervision of elderly multigravida, unspecified trimester (3) Rh negative state in antepartum period: Status: Acute Code(s): O26.899 - Other specified related conditions, unspecified trimester; Z67.91 - Unspecified blood type, Rh negative (4) Superficial thrombophlebitis: Status: Acute Code(s): I80.9 - Phlebitis and thrombophlebitis of unspecified site (5) Endometrial polyp: Status: Acute Code(s): N84.0 - Polyp of corpus uteri (6) : Status: Acute Code(s): Z34.90 - Encounter for supervision of normal , unspecified, unspecified trimester Qualifiers: Weeks of gestation: 38 weeks Qualified Code(s): Z3A.38 - 38 weeks gestation of Medications at Discharge Home Medications fiber 1 tab PO DAILY supplement 09/06/ lactobacillus combination no.4 3 billion cell capsule (Probiotic) 3,000 mmu cells PO DAILY supplement 09/06/ multivitamin 1 tab PO DAILY supplement 09/06/ Hospital Course Operations None Procedures - (vaginal delivery ) Summary of Care Provided Minutes Spent on Discharge: 20 Hospital Course: The patient was admitted to L&D on 02/28/22 for augmentation of labor and decelerations. She delivered a viable female and recovered from delivery without complications. On post day #1 she was bleeding slightly more than usual but overall felt well. On post day#2 she developed left sided calf tenderness and was found to have a + jimbo sign. Doppler studies were ordered and currently pending. The plan is for dc to home if the scan is negative for DVT. if positive will start lovenox and still discharge to home with close follow up. Physical Exam Const alert, oriented x3 and no apparent distress General Appearance: cooperative and comfortable Resp normal respiratory effort Cardio regular rate GI normal to inspection, nondistended, normoactive bowel sounds GI Narrative: uterus is firm below umbilicus Palpation: soft Back/Spine no CVA tenderness and thoraco-lumbar ROM normal Extremity Extremity Narrative: bilateral trace edema, left calf tenderness with + Jimbo sign Skin no rashes or lesions noted, skin turgor normal and no jaundice Psych mental status grossly normal, thought process normal, cooperative, affect normal, speech normal, activity/motor behavior normal, denies homicidal ideation and denies suicidal ideation Weight / BMI Weight Weight: 197 lb Body Mass Index (BMI) 30.8 ABG / Lab / Microbiology Data Result Diagrams: 02/28/22 10:30 D/C Instructions Discharge Diet: No restrictions Discharge Activity: May Shower May resume sexual activity in: 6-8 weeks Weight Bearing Status: Weight bearing as tolerated Lifting Restricted to (Lbs): 20 Call your doctor if you observe: Fever of 101 or Higher, Using more than 1 pad per hour, Shortness of breath, Dizziness, Fainting spells, Swelling in the ankles, Chest pain and Calf discomfort Please Follow Up With: Michelle Velazquez DO When: 6 weeks Meaningful Use Info Meaningful Use Diagnoses (Choose all that apply): None applicable Discharge Plan Admission Admit Date/Time: 02/28/22 12:15 Primary Reason for Your Visit: vaginal delivery Attending Provider: Christin Prabhakar Primary Care Provider: Yovany Martinez Discharge Orders/Prescriptions Prescriptions: No Action multivitamin Tablet 1 tab PO DAILY fiber Tablet 1 tab PO DAILY Probiotic 3 billion cell Capsule 3,000 mmu cells PO DAILY Rx Instructions: administer with a meal Referrals / Follow Up: Yovany Martinez MD [Primary Care Provider] - Disposition Disposition (needs filled in before D/C Order can be placed): Home, Self Care
[2022-03-02 16:05] VITALS: BP 130/70; PULSE 77; RESP 16; TEMP 36.6; O2SAT 97
== END 2022-03-02 18:45 | disposition home or self-care (01) | DRG 806 ==
LOC: WPOUT 03-03 10:35
PROVIDERS: Admitting Provider Obstetrics & Gynecology; PCP Family Medicine; Visit Provider Obstetrics & Gynecology
DX: O76 Abnormality in fetal heart rate and rhythm complicating labor and delivery (principal); Z37.0 Single live birth; O99.13 Other diseases of the blood and blood-forming organs and certain disorders involving the immune mechanism complicating the puerperium; O87.0 Superficial thrombophlebitis in the puerperium; D69.6 Thrombocytopenia, unspecified; I80.00 Phlebitis and thrombophlebitis of superficial vessels of unspecified lower extremity; Z3A.38 38 weeks gestation of pregnancy; Z67.91 Unspecified blood type, Rh negative; O26.893 Other specified pregnancy related conditions, third trimester
CPT/HCPCS: 59025; 59050; 80307; 81001; 85025; 86703; 86780; 86803; 86850; 86900; 86901; 87340; 87491; 87591; 93971; 99221; J7120; G0378

== ENCOUNTER → 2022-04-04 | Outpatient (CLI) | payer OTHER, SELFPAY ==
[2022-04-13 10:04] LABS: HPV APTIMA, High Risk Negative (Negative)
== END | disposition home or self-care (01) ==
LOC: LABSPEC 14:13
PROVIDERS: PCP Family Medicine; Referring Provider Obstetrics & Gynecology; Visit Provider Obstetrics & Gynecology
DX: Z01.419 Encounter for gynecological examination (general) (routine) without abnormal findings (principal)
CPT/HCPCS: 87624; 88175; G0145